=== PATIENT | female | born 1975 | race Two or more races ===

== ENCOUNTER 2018-01-08 20:24 | Emergency (ER) | payer OTHER ==
[~2018-01-08] VITALS: Ht 149.9 cm; Wt 50.8 kg
[2018-01-08 20:27] VITALS: Ht 149.9 cm; Wt 50.8 kg
[2018-01-08 22:11] LABS: BASOPHIL % 0.3 % (0-2); PLATELET COUNT 313 x10^3mcL (130-400); RED CELL DISTRIBUTION WIDTH 13.2 % (11.5-14.5)
[2018-01-08 22:57] LABS: ALBUMIN 4.2 g/dL (3.4-5.0); ALKALINE PHOSPHATASE 80 U/L (46-116); ALT/SGPT 18 U/L (14-59); AST/SGOT 17 U/L (15-37); BILIRUBIN TOTAL 0.4 mg/dL (0.20-1.00); CARBON DIOXIDE 31.5 mmol/L (21-32); CHLORIDE SERUM 102 mmol/L (98-107); CREATININE SERUM 0.9 mg/dL (0.6-1.0); FREE T4 1.09 ng/dL (0.76-1.46); GFR1 > 60 mL/min; GLUCOSE SERUM 101 mg/dL (74-106); POTASSIUM SERUM 3.9 mmol/L (3.5-5.1); SODIUM SERUM 139 mmol/L (136-145); TOTAL PROTEIN, SERUM 7.8 g/dL (6.4-8.2)
[2018-01-09 01:29] VITALS: BP 126/79
== END 2018-01-09 01:29 | disposition home or self-care (01) ==
LOC: ED 20:24
PROVIDERS: Emergency Medicine
DX: R51 Headache (principal); R42 Dizziness and giddiness; R11.10 Vomiting, unspecified
CPT/HCPCS: 83880; 84439; J1885; J2270; J2765; J7030